=== PATIENT | female | born 1950 | race Caucasian/White ===

== ENCOUNTER 2021-12-15 09:41 | Emergency (ER) | payer MEDICARE, MEDICAID ==
[~2021-12-15] VITALS: Ht 165.1 cm; Wt 55.0 kg
[2021-12-15 10:42] LABS: BASOPHILS % 0.4 % (0.0-2.0); HEMATOCRIT. 36.7 % (36.0-48.0); HEMOGLOBIN. 12.2 g/dL (12.0-16.0); LYMPHOCYTES % 7.8 % (20.0-50.0); MEAN CORPUSCULAR HEMOGLOBIN 32.3 pg (28.0-32.0); MEAN CORPUSCULAR VOLUME 96.8 fL (81.0-99.0); MEAN PLATELET VOLUME 7.3 fl (7.4-10.4); MONOCYTES % 7.7 % (2.0-8.0); NEUTROPHILS % 84.1 % (40.0-76.0); PLATELET 401 x1000/uL (130-400); RED BLOOD CELL COUNT 3.79 mill/uL (4.2-5.4); RED CELL DISTRIBUTION WIDTH 14.7 % (11.6-14.6)
[2021-12-15 10:52] LABS: CHLORIDE 99 mEq/L (98-107)
[2021-12-15 10:54] LABS: INR 1.1; PROTHROMBIN TIME 11.7 sec (9.6-11.0)
[2021-12-15 11:01] LABS: ETHANOL BLOOD < 10 mg/dL
[2021-12-15] MEDS ORDERED: SODIUM CHLORIDE 0.9% 500 ML IV ONE (12:30)
[2021-12-16] MEDS ORDERED: OLANZAPINE 5MG TABLET ODT PO ONE (09:00)
[2021-12-16] MEDS ORDERED: OLANZAPINE 10 MG/VIAL IM ONE (09:30)
[2021-12-16 15:49] VITALS: BP 168/73
== END 2021-12-16 16:08 | disposition short-term general hospital (02) ==
LOC: ER 09:41
DX: R10.9 Unspecified abdominal pain (principal); S52.571A Other intraarticular fracture of lower end of right radius, initial encounter for closed fracture; R11.10 Vomiting, unspecified; F41.9 Anxiety disorder, unspecified; F03.90 Unspecified dementia, unspecified severity, without behavioral disturbance, psychotic disturbance, mood disturbance, and anxiety; W01.0XXA Fall on same level from slipping, tripping and stumbling without subsequent striking against object, initial encounter; Y93.89 Activity, other specified; Y92.9 Unspecified place or not applicable; Z20.822 Contact with and (suspected) exposure to COVID-19
CPT/HCPCS: 29105; 36415; 71045; 73110; 73130; 80053; 80307; 80320; 80329; 83690; 85025; 85610; 87426; 93005; 96360; 96361; 96372; 99285; C9803; J3490; J7040; G0480